=== PATIENT | female | born 1965 | race American Indian/Alaskan Native ===

== ENCOUNTER 2022-02-05 21:30 | Emergency (ER) | payer OTHER ==
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
[2022-02-06] MEDS ORDERED: IBUPROFEN 600 MG TAB PO ONE (01:40)
[2022-02-06] MEDS ORDERED: ONDANSETRON 4 MG ODT TAB PO ONE (01:40)
[2022-02-06] MEDS ORDERED: HYDROcodone/ACETAMINOPHEN 7.5-325MG TAB PO ONE (01:40)
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
[2022-02-06 02:44] VITALS: BP 132/84
== END 2022-02-06 02:44 | disposition home or self-care (01) ==
LOC: ED 21:30
DX: M62.830 Muscle spasm of back (principal); G89.29 Other chronic pain; M54.50 Low back pain, unspecified; V89.2XXA Person injured in unspecified motor-vehicle accident, traffic, initial encounter; Y93.89 Activity, other specified; Y92.89 Other specified places as the place of occurrence of the external cause; Y99.8 Other external cause status
CPT/HCPCS: 70450; 72100; 72125; 99284; J3490; Q0162